=== PATIENT | female | born 1995 | race Caucasian/White ===

== ENCOUNTER → 2020-07-27 20:33 | Observation (INO) ==
[2020-07-27 20:50] LABS: Amorphous Sediment,Urine Few per hpf (None-Few); Bacteria,Urine Few per hpf (None-Few); Bilirubin,Urine Negative (Negative); Blood,Urine Negative (Negative); Clarity,Urine Turbid (Clear); Color,Urine Yellow (Yellow); Glucose,Urine (UA) Normal (Normal); Ketones,Urine Negative (Negative); Leukocyte Esterase,Urine Negative (Negative); Mucus,Urine Few per lpf (None-Few); Nitrite,Urine Negative (Negative); PH,Urine 6.5 pH Units (5.0-8.0); Protein,Urine 30 mg/dL (Neg-Trace); RBC,Urine 0-3 per hpf (0-3); Specific Gravity,Urine 1.025 (1.010-1.025); Squamous Epithelial Cell,Urine Moderate per hpf (None-Few); Urobilinogen,Urine Normal (Normal)
== END | disposition home or self-care (01) ==
LOC: 1NENULAB
PROVIDERS: ADMIT Obstetrics & Gynecology; ATTEND Obstetrics & Gynecology

== ENCOUNTER → 2020-09-23 10:40 | Observation (INO) ==
[2020-09-23 10:16] LABS: Bacteria,Urine Few per hpf (None-Few); Bilirubin,Urine Negative (Negative); Blood,Urine Negative (Negative); Clarity,Urine Turbid (Clear); Color,Urine Yellow (Yellow); Glucose,Urine (UA) Normal (Normal); Ketones,Urine 10 mg/dL (Negative); Leukocyte Esterase,Urine Small (Negative); Nitrite,Urine Negative (Negative); Protein,Urine Trace mg/dL (Neg-Trace); RBC,Urine 0-3 per hpf (0-3); Specific Gravity,Urine 1.011 (1.010-1.025); Squamous Epithelial Cell,Urine Moderate per hpf (None-Few); Urobilinogen,Urine Normal (Normal)
== END | disposition home or self-care (01) ==
LOC: 1NENULAB
PROVIDERS: ADMIT Advanced Practice Midwife; ATTEND Advanced Practice Midwife

== ENCOUNTER 2020-10-13 20:09 | Inpatient (IN) ==
[2020-10-13 16:15] LABS: Basophils % 0.3 %; Eosinophils # 0.1 K/mcL (0.0-0.6); Eosinophils % 0.9 %; Hematocrit 42.1 % (35.3-44.9); Lymphocytes % 13.1 %; Mean Corpuscular HGB Conc 33.3 g/dL (31.6-35.5); Mean Corpuscular Hemoglobin 28.5 pg (28.0-33.3); Mean Corpuscular Volume 85.6 fL (83.0-100.0); Mean Platelet Volume 11.1 fL (9.4-12.4); Monocytes # 0.7 K/mcL (0.0-1.3); Monocytes % 4.3 %; Neutrophils # 12.5 K/mcL (1.6-8.9); Platelet Count 302 K/mcL (140-400); Red Blood Count 4.92 M/mcL (3.82-4.97); Red Cell Distribution Width 14.2 % (11.5-14.5); Segmented Neutrophils % 80.4 %; White Blood Count 15.5 K/mcL (4.3-11.1)
[2020-10-13 16:21] LABS: Protein/Creatinine Ratio,Urine 0.35 mg/mg (0.00-0.20)
[2020-10-13 16:33] LABS: Alanine Aminotransferase 12 Units/L (7-52); Aspartate Amino Transferase 16 Units/L (13-39); BUN/Creatinine Ratio 13 (6-26); Blood Urea Nitrogen 7 mg/dL (6-20); Glucose 164 mg/dL (70-105); Lactate Dehydrogenase 121 Units/L (140-271); Uric Acid 4.4 mg/dL (2.3-7.6); eGFR For African Americans > 60 (> 60); eGFR For Non-African Americans > 60 (> 60)
[2020-10-13] MEDS: miSOPROStoL 25 MCG TABLET PO PRN ×2 (17:51→22:05)
[~2020-10-13 20:09] MED LIST: *HR* Dextrose 50 % in Water (Vial) 50 ML VIAL IVP PRN; *HR* Nalbuphine 10 MG/ML AMPUL IV PRN; Calcium Gluconate 1,000 MG/10 ML VIAL IVP PRN; D5% in Lactated Ringers 1,000 ML IVC SCH; Dextrose Gel 15 GM/37.5 ML TUBE PO PRN; EPHEDrine 50 MG/ML VIAL IVP PRN; Epidural Premix (fent/bupiv) 110 ML EP SCH; Famotidine 20 MG/2 ML VIAL IVP PRN; Lidocaine 1% 20 ML MDV INFILT PRN; Magnesium Sulf 20 gm/SW 500mL 20 GM/500 ML IV.SOLN IVC SCH; Metoclopramide 10 MG/2 ML VIAL IVP PRN; Naloxone 0.4 MG/ML INJ IVP PRN; Ondansetron 4 MG/2 ML VIAL IVP PRN; Ringers Solution, Lactated 1,000 ML IVC SCH; Ringers Solution, Lactated 1,000 ML ONE; Ropivacaine/PF 0.2% 20 ML VIAL EP ONE
[2020-10-13] MEDS ORDERED: Ropivacaine/PF 0.2% 20 ML VIAL ONE (20:18)
[2020-10-13 20:40] LABS: Influenza A PCR Negative (Negative); Influenza B PCR Negative (Negative); Resp. Syncytial Virus PCR Negative (Negative)
[2020-10-13 21:04] LABS: SARS-CoV-2 by PCR (In House) Negative (Negative)
[2020-10-14] MEDS ORDERED: Insulin LISPRO 300 UNITS/3 ML VIAL SUBQ SCH
[2020-10-14] MEDS ORDERED: Oxytocin 20 units/ LR 1000 mL 20 UNIT/1,000 ML BAG IVC SCH ×2 (02:15→07:34)
[2020-10-14] MEDS ORDERED: Magnesium Sulf 20 gm/SW 500mL 20 GM/500 ML IV.SOLN IVC SCH ×2 (07:15→13:43)
[2020-10-14] MEDS ORDERED: Measles/Mumps/Rubella Vacc 0.5 ML VIAL SQ PRN (07:34)
[2020-10-14] MEDS: Ibuprofen 600 MG TABLET PO PRN ×2 (10:36→19:39)
[2020-10-14] MEDS: Famotidine 20 MG TABLET PO SCH ×2 (10:37→19:40)
[2020-10-14] MEDS: Prenatal Vit/FA 1 EACH TABLET PO SCH (10:37)
[2020-10-14] MEDS: Aspirin Enteric Coated 81 MG Tablet PO SCH (10:37)
[2020-10-14] MEDS: Acetaminophen 325 MG TABLET PO PRN (14:30)
[2020-10-15] MEDS: Acetaminophen 325 MG TABLET PO PRN (04:03)
[2020-10-15 05:15] LABS: Basophils % 0.3 %; Eosinophils # 0.2 K/mcL (0.0-0.6); Eosinophils % 1.8 %; Immature Granulocytes % 1.1 % (0-4); Lymphocytes # 2.6 K/mcL (0.6-4.6); Lymphocytes % 20.2 %; Mean Corpuscular HGB Conc 32.9 g/dL (31.6-35.5); Mean Corpuscular Hemoglobin 28.7 pg (28.0-33.3); Mean Corpuscular Volume 87.2 fL (83.0-100.0); Mean Platelet Volume 10.7 fL (9.4-12.4); Monocytes # 0.7 K/mcL (0.0-1.3); Monocytes % 5.6 %; Neutrophils # 9.2 K/mcL (1.6-8.9); Platelet Count 282 K/mcL (140-400); Red Cell Distribution Width 14.3 % (11.5-14.5)
[2020-10-15 05:16] LABS: Hemoglobin 11.2 g/dL (11.5-15.4)
[2020-10-15] MEDS: Aspirin Enteric Coated 81 MG Tablet PO SCH (08:34)
[2020-10-15] MEDS: Prenatal Vit/FA 1 EACH TABLET PO SCH (08:34)
[2020-10-15] MEDS: Ibuprofen 600 MG TABLET PO PRN ×2 (08:34→22:47)
[2020-10-15] MEDS: Famotidine 20 MG TABLET PO SCH ×2 (08:35→22:45)
[2020-10-15] MEDS: Venlafaxine XR (24 HR) 150 MG CAP.ER.24H PO SCH (13:22)
[2020-10-16] MEDS: Venlafaxine XR (24 HR) 150 MG CAP.ER.24H PO SCH (07:51)
[2020-10-16] MEDS: Famotidine 20 MG TABLET PO SCH (07:52)
[2020-10-16] MEDS: Prenatal Vit/FA 1 EACH TABLET PO SCH (07:52)
[2020-10-16] MEDS: Aspirin Enteric Coated 81 MG Tablet PO SCH (07:52)
[2020-10-16] MEDS: Ibuprofen 600 MG TABLET PO PRN (07:52)
[2020-10-16 07:57] VITALS: BP 107/71
== END 2020-10-16 13:56 | disposition home or self-care (01) | DRG 560 ==
LOC: 1NENULAB → 1NENUOBS 10-14 09:55
PROVIDERS: ADMIT Obstetrics & Gynecology; ATTEND Obstetrics & Gynecology